=== PATIENT | female | born 1965 | race Asian ===

== ENCOUNTER 2017-11-26 05:55 | Day surgery (SDC) | payer OTHER, SELFPAY ==
[2017-11-24 14:13] VITALS: BMI 25.2
[2017-11-26] VITALS (7 sets, daily range): BP systolic 102–126; BP diastolic 65–79; PULSE 55–62; RESP 14–16; TEMP 36.2–36.9; O2SAT 98–100; BMI 25.2
[2017-11-26] MEDS: LACTATED RINGERS 1,000 ML 42 ML IV ×2 (06:50→10:25)
--- NOTE | 2017-11-26 07:46 | PM.PREOP ---
Pre-operative Note Interval Note Pre-op Check: Yes History & Physical Reviewed by Physician and Yes Exam Performed Changes: No
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
[2017-11-26] MEDS: CEFAZOLIN 2 GM/100 ML FROZ.PIGGY IV (08:04)
--- NOTE | 2017-11-26 08:41 | SUR.OPER ---
Supine on padded OR bed, head on pillow, arms secured on padded arm boards at <90 degrees abduction, left leg is in knee brace and under control of surgeon, right leg is taped over the blanket to the bed, safety belt at thigh.
[2017-11-26] MEDS: BUPIVACAINE 0.25% (PF) VIAL 30 ML INJ (08:59)
[2017-11-26] MEDS: SODIUM CHLORIDE IRRIG SOLUTION 3,000 ML, EPINEPHrine 1 MG IRR (09:00)
[2017-11-26] MEDS: BACITRACIN 50,000 UNIT VIAL 50000 UNIT IRR (09:29)
[2017-11-26] MEDS: OXYCODONE/ACETAMINOPHEN 5/325 TABLET 1 TAB PO (11:47)
== END 2017-11-26 12:55 | disposition home or self-care (01) ==
PROVIDERS: Visit Provider Orthopaedic Surgery
PROC: (CPT 29888; principal; 2017-11-26 07:45)
DX: S83.512A Sprain of anterior cruciate ligament of left knee, initial encounter (principal)
CPT/HCPCS: 29888; J0171; J0690; J2250; J2704; J3010

== ENCOUNTER → 2019-09-21 13:16 | Outpatient (CLI) | payer OTHER, SELFPAY ==
--- NOTE | 2019-09-21 | DI.MRI.S_ITS ---
PROCEDURE: MR HIP RT WO CON INDICATIONS: Pain in right hip TECHNIQUE: Noncontrast coronal T1 spin echo and STIR through the bony pelvis. Coronal and axial T2 fast spin echo with fat saturation, sagittal T1 spin echo, and oblique axial T2 fast spin echo with fat saturation through the hip. COMPARISON: None. FINDINGS: Image quality: Excellent. Bones and joints: Bone marrow of the pelvic ring and proximal femurs show normal signal throughout. No intraosseous lesions or fractures. No avascular necrosis of the femoral heads. The visualized lower lumbar spine appears normally aligned. Mild osseous hypertrophy noted at the femoral head neck junction compatible with mild osteoarthritis. Tendons and ligaments: The gluteus medius and minimus tendons appear intact, without associated muscle atrophy. Gluteus minimus tendon is mildly thickened with increased internal signal compatible with mild tendinosis. The nearby proximal iliotibial band also appears intact. The iliopsoas tendon appears intact, without adjacent bursal fluid collections or evidence for impingement syndrome. The origin of the hamstring tendon is intact at the ischial tuberosity, as well as the associated sacrotuberous ligament. The straight and reflected heads of the rectus femoris muscle origin appear intact, as well as the conjoint tendon. The ligamentum teres appears intact where visualized. Labrum and cartilage: The acetabular labrum appears intact in the absence of intra-articular contrast. Small, approximately 2 mm defect noted in the superior-lateral articular cartilage (series 6, image 7). The alpha angle of the femur is within normal limits at less than 55 degrees. Soft tissues: Visualized muscles demonstrate normal bulk and internal signal. Quadratus femoris muscle demonstrates no internal edema to suggest ischiofemoral impingement. The proximal sciatic neurovascular bundle appears normal adjacent to the hamstring tendons. No free pelvic fluid. Bladder wall thickness is normal. Genitourinary structures and bowel loops appear normal where visualized. IMPRESSION: 1. Mild right hip osteoarthritis. 2. 2 mm defect involving the superior-lateral femoral head articular cartilage. 3. Mild gluteus minimus tendinosis. 4. No labral tear. 5. No joint effusion. Dictated by: Fior Moreno MD, PhD on 09/21/2019 at 14:37 Approved by: Fior Moreno MD, PhD on 09/22/2019 at 11:41
== END ==
PROVIDERS: PCP General Practice; Referring Provider Family Medicine; Visit Provider Family Medicine
DX: M25.551 Pain in right hip (principal); M16.11 Unilateral primary osteoarthritis, right hip; M67.951 Unspecified disorder of synovium and tendon, right thigh
CPT/HCPCS: 73721

== ENCOUNTER → 2019-09-24 14:05 | Outpatient (CLI) | payer OTHER, SELFPAY ==
[2019-09-25 23:34] LABS: COVID19 Sendout Not Detected (Not Detect)
== END ==
PROVIDERS: PCP General Practice; Visit Provider Physician Assistant
DX: Z11.59 Encounter for screening for other viral diseases (principal)
CPT/HCPCS: 87635

== ENCOUNTER → 2019-10-13 15:30 | Outpatient (CLI) | payer OTHER, SELFPAY ==
--- NOTE | 2019-10-13 15:48 | DI.MG.S_ITS ---
Patient Name: FRANCISCO HUIZAR date: 1965 Sex: F Attending Physician: Jhony Indications: Date: 10/13/2019 15:39 At the request of: CARLOS MCDERMOTT Procedure: MM screening mammo BI BILATERAL DIGITAL SCREENING MAMMOGRAM 3D/2D WITH CAD: 10/13/2019 CLINICAL: Routine screening. Comparison is made to exams dated: 06/14/2018 mammogram - [facility], 10/09/2014 mammogram - [facility], and 08/03/2013 mammogram - [facility]. The tissue of both breasts is extremely dense, which lowers the sensitivity of mammography. Current study was also evaluated with a Computer Aided Detection (CAD) system. No significant masses, calcifications, or other findings are seen in either breast. There has been no significant interval change. IMPRESSION: NEGATIVE There is no mammographic evidence of malignancy. A 1 year screening mammogram is recommended. This exam was interpreted at Station ID: [id number]. NOTE: For mammograms, a report in lay terms will be sent to the patient. Approximately 15% of breast malignancies will not be visualized mammographically. In the management of a palpable breast mass, a negative mammogram must not discourage biopsy of a clinically suspicious lesion. Electronically Signed By: Donovan winters/janna:10/13/2019 17:40:54 letter sent: Normal Exam ACR BI-RADS Category 1: Negative [id number]
== END ==
PROVIDERS: PCP General Practice; Referring Provider General Practice; Visit Provider Family Medicine
DX: Z12.31 Encounter for screening mammogram for malignant neoplasm of breast (principal)
CPT/HCPCS: 77063; 77067

== ENCOUNTER → 2019-10-26 09:25 | Outpatient (CLI) | payer OTHER, SELFPAY ==
--- NOTE | 2019-10-26 | DI.MRI.S_ITS ---
PROCEDURE: MR ANGIO HEAD WO CON INDICATIONS: RIGHT POSTERIOR AN. TECHNIQUE: Noncontrast axial 3-D [id number] MR angiogram, with 3-dimensional maximum intensity projection (MIP) reformats of the internal carotid arteries and posterior circulation then performed. COMPARISON: [facility], MR, MR ANGIO HEAD WITHOUT CONTRAST, 10/29/2017, 19:35. [facility], MR, ANGIO HEAD WITHOUT CONTRAST, 09/11/2016, 13:06. FINDINGS: Image quality: Excellent. Anterior circulation: Intracranial internal carotid arteries demonstrate normal size and intraluminal flow signal. The flow within the paired anterior cerebral arteries is normal and symmetric. The flow within the middle cerebral arteries is normal and symmetric. The anterior communicating artery is seen. No stenoses, occlusions, or aneurysms. Posterior circulation: Visualized portions of the vertebral arteries demonstrate normal caliber, and join to form a normal appearing basilar artery. The flow within the posterior cerebral arteries is normal and symmetric. Persistent right posterior cerebral artery anatomy and left posterior cerebral artery origin congenital anatomic variants are redemonstrated. Slight prominence of the origin of the right posterior communicating artery is stable compared to prior examinations. No stenoses or occlusions. IMPRESSION: 1. Stable examination compared to October 29, 2017 and September 11, 2016. 2. Slight prominence of the origin of right posterior communicating artery is stable compared to prior examinations. Finding may represent a prominent infundibulum versus 1-2 millimeter aneurysm. Dictated by: Fior Moreno MD, PhD on 10/26/2019 at 11:25 Approved by: Fior Moreno MD, PhD on 10/26/2019 at 11:30
== END ==
PROVIDERS: PCP General Practice; Referring Provider Family Medicine; Visit Provider Family Medicine
DX: I67.1 Cerebral aneurysm, nonruptured (principal)
CPT/HCPCS: 70544

== ENCOUNTER → 2022-02-11 15:34 | Outpatient (CLI) | payer OTHER, SELFPAY ==
--- NOTE | 2022-02-11 16:34 | DI.MRI.S_ITS ---
PROCEDURE: MR ANGIO HEAD WO CON INDICATIONS: ANURYSM OF INSPECIFIEC SIYE TECHNIQUE: Noncontrast axial 3-D [id number] MR angiogram, with 3-dimensional maximum intensity projection (MIP) reformats of the internal carotid arteries and posterior circulation then performed. COMPARISON: [facility], MR, MR ANGIO HEAD WO CON, 10/26/2019, 10:14. [facility], MR, ANGIO HEAD WITHOUT CONTRAST, 09/11/2016, 13:06. [facility], MR, MR ANGIO HEAD WITHOUT CONTRAST, 10/29/2017, 19:35. FINDINGS: Image quality: Excellent. Anterior circulation: Intracranial internal carotid arteries demonstrate normal size and intraluminal flow signal. There is a diminutive left A1 segment, with a corresponding robust right A1 segment. 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 The flow within the paired anterior cerebral arteries is otherwise normal and symmetric. The flow within the middle cerebral arteries is normal and symmetric. The anterior communicating artery is seen. At the origin of the right posterior communicating artery, there is a mild outpouching seen, measuring approximately 2 mm, as on series 5, image 94. This is stable over time. Posterior circulation: Note is made of bilateral type origins of the posterior cerebral arteries, with an associated diminutive basilar artery. The flow within the posterior cerebral arteries is normal and symmetric. The distal vertebral arteries are overall small in size, yet otherwise unremarkable. No aneurysms are seen. Note is made of a cavum septum pellucidum. When discovered in isolation, this is considered to be a developmental variant of no clinical consequence. IMPRESSION: Stable outpouching seen at the origin of the right posterior communicating artery. An infundibulum is suspected, although differential diagnosis includes small aneurysm. [id number]-Hcazql developmental anomalies are incidentally noted. Dictated by: Giovani Bell M.D. on 02/11/2022 at 16:34 Approved by: Giovani Bell M.D. on 02/11/2022 at 16:38
== END ==
PROVIDERS: PCP General Practice; Referring Provider Physician Assistant Medical; Visit Provider Physician Assistant Medical
DX: I72.9 Aneurysm of unspecified site (principal)
CPT/HCPCS: 70544

== ENCOUNTER 2022-05-19 12:25 | Emergency (ER) | payer OTHER, SELFPAY ==
[2022-05-19] VITALS (7 sets, daily range): BP systolic 131–139; BP diastolic 63–75; PULSE 52–57; RESP 14; TEMP 36.8; O2SAT 98–100; BMI 24.7
--- NOTE | 2022-05-19 15:25 | PC.NURSE ---
Patient reports drinking a bubble billie last night and getting a boba stuck in her throat. Patient reported that they used their inhaler due to inability to breathe sufficiently. Patient states that they now can feel the boba stuck in their throat and its causing discomfort but denies having any pain.
--- NOTE | 2022-05-19 15:30 | ED.SKABFB ---
HPI - Skin/Abscess/Foreign Bdy General Chief complaint: Skin/Abscess/Foreign Body Stated complaint: Food Stuck in Windpipe Time Seen by Provider: 05/19/22 15:27 Source: patient Mode of arrival: Ambulatory Limitations: no limitations History of Present Illness HPI narrative: Patient is a 56-year-old female history of asthma presents today after aspirating a boba bubble from tea. She reports that they were drinking tea when she inhaled and bubble go down. She had some pain she used an inhaler. She is no wheezing or stridor no difficulty swallowing. She feels like her voice was a little bit [place] she has a little bit of chest pressure. No fever or chills. She overall does not appear in respiratory distress. Related Data Home Medications Medication Instructions Recorded Confirmed albuterol sulfate 90 mcg/actuation 1 - 2 puff inhalation Q4-6H PRN 11/24/17 11/24/17 aerosol inhaler Asthma fluticasone 100 mcg-salmeterol 50 1 puff inhalation BID 11/24/17 11/26/17 mcg/dose blistr powdr for inhalation (Advair Diskus) loratadine 10 mg tablet 10 mg PO DAILY 11/24/17 11/26/17 montelukast 10 mg tablet 10 mg PO DAILY 11/24/17 11/24/17 (Singulair) white petrolatum 42 % topical 1 applic topical DIRECTED eczema 11/24/17 11/24/17 ointment (Hydrophor) zolmitriptan 2.5 mg tablet 2.5 mg PO Q2-4H PRN migraines 11/24/17 11/24/17 Allergies Allergy/AdvReac Type Severity Reaction Status Date / Time No Known Drug Allergies Allergy Verified 05/19/22 12:41 Review of Systems Review of Systems ROS Unobtainable: All systems reviewed & are unremarkable except as noted in HPI and below Patient History Medical History Asthma Cerebral aneurysm Social History household members: spouse and children Smoking Status: Never smoker alcohol intake: current Smoking Status: Never smoker Substance Use Type: does not use Exam Initial Vital Signs Initial Vital Signs: Vital Signs Temperature 98.3 F 05/19/22 12:42 Pulse Rate 57 L 05/19/22 12:42 Respiratory Rate 14 05/19/22 12:42 Blood Pressure 139/63 05/19/22 12:42 Pulse Oximetry 99 05/19/22 12:42 Oxygen Delivery Method Room Air 05/19/22 12:42 GENERAL: Alert well-appearing 56 year old female and in no acute distress. HEENT: Head atraumatic,EOMI, pupils reactive, face symmetric, moist mucous membranes CARDIOVASCULAR: Regular rate and rhythm without murmurs, rubs or gallops. RESPIRATORY: Breath sounds equal bilaterally, no wheezes rales or rhonchi. ABDOMEN: Soft, nontender. Normoactive bowel sounds all 4 quadrants. No guarding or rebound.s EXTREMITIES: Normal range of motion, no clubbing or edema. Neurovascularly intact NEUROLOGICAL: Alert and oriented x4. SKIN: Warm, dry, no laceration, no petechiae, no rashes or lesions. Course Orders Ordered: ED Orders 05/19/22 15:39 Chest [XR chest 2V] Stat Vital Signs Vital signs: Vital Signs - 8 hr 05/19/22 12:42 05/19/22 15:11 05/19/22 15:16 Temperature 98.3 F Pulse Rate 57 L 54 L 54 L Respiratory Rate 14 Blood Pressure 139/63 135/65 Pulse Oximetry 99 99 99 Oxygen Delivery Method Room Air Room Air 05/19/22 15:19 05/19/22 15:19 05/19/22 15:30 Temperature Pulse Rate 54 L Respiratory Rate Blood Pressure 131/72 131/75 Pulse Oximetry 100 Oxygen Delivery Method 05/19/22 15:30 05/19/22 16:00 05/19/22 16:30 Temperature Pulse Rate 52 L 54 L 52 L Respiratory Rate Blood Pressure Pulse Oximetry 98 99 100 Oxygen Delivery Method Room Air MDM - Skin/Abscess/Foreign Bdy Imaging Data Chest x-ray: Radiologist's Impression: PROCEDURE:? XR CHEST 2V ? INDICATIONS:? aspiration ? TECHNIQUE:? 2 views of the chest were acquired.? ? COMPARISON:? None. ? FINDINGS:? ? Surgical changes and devices:? None.? ? Lungs and pleura:? Lungs are clear.? No pleural effusions or pneumothorax.? ? Mediastinum:? Mediastinal contours are normal.? Heart size is normal.? ? Bones and chest wall:? No suspicious bony abnormalities.? Soft tissues appear unremarkable.? ? IMPRESSION:? No acute pulmonary process. ? ? Dictated by: Beatriz Diaz M.D. on 05/19/2022 at 16:41 ? MDM Narrative Medical decision making narrative: Patient is a 56-year-old female who inhaled a boba bubble from the tea. She has absolutely no airway compromise. Her lungs are clear. This happened yesterday. Chest x-ray does not show any abnormality. We discussed possible development of aspiration however does not need to be pretreated at this time. I suspect that the organic material will break down there is no need to go with a bronchoscopy. At this time supportive care only Discharge Plan Departure Patient Disposition: Home Clinical Impression: Aspiration into airway Instructions: Aspiration Pneumonia Activity Restrictions/Additional Instructions: *You have been diagnosed with aspiration *What to do: At this time there is no evidence of pneumonia on your x-ray. No foreign body is seen. You may still be sore. Please continue to monitor for worsening symptoms *Continue to take medications as directed *Follow up with your primary care provider in 2-3 days or call [phone] *Return to ER if you should have increased difficulty breathing, inability to swallow, fever chills cough or any new, worsening or concerning symptoms Prescriptions: No Action zolmitriptan 2.5 mg Tablet 2.5 mg PO Q2-4H PRN (Reason: migraines) montelukast [Singulair] 10 mg Tablet 10 mg PO DAILY fluticasone propion-salmeterol [Advair Diskus] 100-50 mcg/dose Blister With Device 1 puff INHALATION BID albuterol sulfate 90 mcg/actuation Hfa Aerosol Inhaler 1 - 2 puff INHALATION Q4-6H PRN (Reason: Asthma) loratadine 10 mg Tablet 10 mg PO DAILY white petrolatum [Hydrophor] 42 % Ointment 1 applic TOPICAL DIRECTED Referrals: ProviderShar [Primary Care Provider] - Stand Alone Forms: Patient Portal/API
--- NOTE | 2022-05-19 15:39 | DI.RAD.S_ITS ---
PROCEDURE: XR CHEST 2V INDICATIONS: aspiration TECHNIQUE: 2 views of the chest were acquired. COMPARISON: None. FINDINGS: Surgical changes and devices: None. Lungs and pleura: Lungs are clear. No pleural effusions or pneumothorax. Mediastinum: Mediastinal contours are normal. Heart size is normal. Bones and chest wall: No suspicious bony abnormalities. Soft tissues appear unremarkable. IMPRESSION: No acute pulmonary process. Dictated by: Beatriz Diaz M.D. on 05/19/2022 at 16:41 Approved by: Beatriz Diaz M.D. on 05/19/2022 at 16:41
== END 2022-05-19 16:51 | disposition home or self-care (01) ==
PROVIDERS: Emergency Provider Emergency Medicine
DX: T17.908A Unspecified foreign body in respiratory tract, part unspecified causing other injury, initial encounter (principal)
CPT/HCPCS: 71046; 99283

== ENCOUNTER 2023-06-20 19:49 | Emergency (ER) | payer OTHER, SELFPAY ==
[2023-06-20 20:00] VITALS: BP 143/70; PULSE 52; RESP 14; TEMP 36.4; O2SAT 100; BMI 24.7
[2023-06-20 20:21] VITALS: BP 134/71; PULSE 49; RESP 18; O2SAT 100
--- NOTE | 2023-06-20 20:29 | PC.NURSE ---
states she just wears glsses to drive.
--- NOTE | 2023-06-20 20:51 | ED.GENADULT ---
HPI - General Adult General Chief complaint: Eye Problems Stated complaint: R eye drooping Time Seen by Provider: 06/20/23 20:23 Source: patient Mode of arrival: Ambulatory History of Present Illness HPI narrative: Patient is a 57-year-old female who is here for evaluation of what she states is some tingling around her right eye and feeling like her right eye is drooping. She has no vision changes. No headache. No dental pain. No ear pain. No sinus congestion. No skin rashes. No trauma. Does wear glasses when she drives. She stated that she 1st noticed the symptoms when she was driving home earlier today from [place]. She does state that she has been under quite a bit of stress recently has a good friend of hers just and she was crying this morning. She denies any numbness or tingling in her upper and lower extremities. No balance issues. No rashes. No problems speaking. No problems swallowing. Related Data Home Medications Medication Instructions Recorded Confirmed albuterol sulfate 90 mcg/actuation 1 - 2 puff inhalation Q4-6H PRN 11/24/17 11/24/17 aerosol inhaler Asthma fluticasone 100 mcg-salmeterol 50 1 puff inhalation BID 11/24/17 11/26/17 mcg/dose blistr powdr for inhalation (Advair Diskus) loratadine 10 mg tablet 10 mg PO DAILY 11/24/17 11/26/17 montelukast 10 mg tablet 10 mg PO DAILY 11/24/17 11/24/17 (Singulair) white petrolatum 42 % topical 1 applic topical DIRECTED eczema 11/24/17 11/24/17 ointment (Hydrophor) zolmitriptan 2.5 mg tablet 2.5 mg PO Q2-4H PRN migraines 11/24/17 11/24/17 Allergies Allergy/AdvReac Type Severity Reaction Status Date / Time No Known Drug Allergies Allergy Verified 05/19/22 12:41 Review of Systems Review of Systems Narrative: See HPI ROS Unobtainable: All systems reviewed & are unremarkable except as noted in HPI and below Patient History Medical History Cerebral aneurysm Asthma Social History household members: spouse and children Smoking Status: Never smoker alcohol intake: current Smoking Status: Never smoker alcohol intake frequency: holidays/special occasions only Substance Use Type: does not use Exam Initial Vital Signs Initial Vital Signs: Vital Signs Temperature 97.6 F 06/20/23 20:00 Pulse Rate 52 L 06/20/23 20:00 Respiratory Rate 14 06/20/23 20:00 Blood Pressure 143/70 H 06/20/23 20:00 Pulse Oximetry 100 06/20/23 20:00 Oxygen Delivery Method Room Air 06/20/23 20:00 Const General: cooperative, comfortable, well groomed and No ill appearing HENMT Ears: hearing grossly normal bilaterally and TM's normal bilaterally Nose: external nose normal Face and sinus: face asymmetric (Slight swelling under the right eye.), no ecchymosis, no erythema, no fluctuance, no lacerations and no sinus tenderness Mouth: oral mucosae normal, lip normal and tongue normal Teeth and gingiva: dentition normal Throat: posterior oropharynx normal Eyes Periorbital: periorbital findings abnormal right periorbital swelling (Inferior aspect of right eye); no tenderness, no erythema and no ecchymosis Eyelids: eyelids normal Pupils: PERRL EOM: EOM intact bilaterally Resp Effort & Inspection: normal respiratory effort Cardio Rate: regular rate Neuro General: patient alert, patient awake, patient oriented x3 and moves all extremities Cranial Nerves: CN's II-XI intact bilaterally Cognition: normal cognition Speech: speech normal Motor: muscle tone normal throughout Sensory Exam: no sensory deficits noted Course Vital Signs Vital signs: Vital Signs - 8 hr 06/20/23 20:00 06/20/23 20:21 06/20/23 21:51 Temperature 97.6 F Pulse Rate 52 L 49 L 52 L Respiratory Rate 14 18 18 Blood Pressure 143/70 H 134/71 133/72 Pulse Oximetry 100 100 99 Oxygen Delivery Method Room Air Room Air Room Air Medical Decision Making MDM Narrative Medical decision making narrative: There is some mild swelling along the right cheek bone and under the right eye. I do not appreciate any drooping of the right eye. She reports some tingling to the area under the right eye but otherwise her cranial nerves are unremarkable. She has no other focal neurologic deficits. She does have history of an aneurysm but they have been watching this for the past several years without any change. Her symptoms today are not consistent with a CVA. Considered Kahn's palsy however her symptoms are not completely consistent with this as well. She has no signs of an infection. She has no ocular changes. No other HEENT symptoms that would be concerning for your eye. She has no skin changes over the area that would be concerning for an infection or zoster. She denied any specific trauma. Low suspicion for TIA. I had a long discussion with the patient in the . We did discuss the lack of a definitive diagnosis. Discussed that potentially her symptoms are so early on that over the next 12-24 hours she will develop something that will point us in a particular direction such as a skin rash or potentially progressive symptoms that would be more consistent with a Kahn's palsy. I do feel that we can hold on any radiologic studies he was once again I have low suspicion for CVA based on her presentation. They will go home and treat the symptoms conservatively. She can use some ice over the area. They understand that if any of her symptoms worsen or she develops new symptoms that she should return to the emergency department for further evaluation. Discharge Plan Departure Patient Disposition: Home Clinical Impression: Facial paresthesia Instructions: DI for Numbness/Tingling Activity Restrictions/Additional Instructions: Continue to take all of your medications as directed. If over the next 12-24 to 48 hours you develop new symptoms to include a rash, redness, increasing pain, eye pain or tooth pain please return to the emergency department for further evaluation. Prescriptions: No Action zolmitriptan 2.5 mg Tablet 2.5 mg PO Q2-4H PRN (Reason: migraines) montelukast [Singulair] 10 mg Tablet 10 mg PO DAILY fluticasone propion-salmeterol [Advair Diskus] 100-50 mcg/dose Blister With Device 1 puff INHALATION BID albuterol sulfate 90 mcg/actuation Hfa Aerosol Inhaler 1 - 2 puff INHALATION Q4-6H PRN (Reason: Asthma) loratadine 10 mg Tablet 10 mg PO DAILY white petrolatum [Hydrophor] 42 % Ointment 1 applic TOPICAL DIRECTED Referrals: ProviderShar [Primary Care Provider] - Stand Alone Forms: Patient Portal/API
[2023-06-20 21:51] VITALS: BP 133/72; PULSE 52; RESP 18; O2SAT 99
== END 2023-06-20 21:55 | disposition home or self-care (01) ==
PROVIDERS: Emergency Provider Emergency Medicine
DX: R20.2 Paresthesia of skin (principal)
CPT/HCPCS: 99281; 99282

== ENCOUNTER 2024-09-14 10:16 | Day surgery (SDC) | payer OTHER, SELFPAY ==
--- NOTE | 2024-09-14 | PATH_ITS ---
[facility] Accession Number: [id number] No. of containers..01 Tissue . 01 Material submitted: . colon - CECAL POLYP . 01 Diagnosis: CECAL POLYP, BIOPSY: Benign lymphoid aggregate. Focal surface hyperplastic changes; nonspecific. No diagnostic tubular adenoma or sessile serrated adenoma identified. . NOTE: Dr. Nahun Neal has also reviewed the case and agrees. . Additional deeper sections were examined. [facility] 09/26/20241954 Local . 01 Electronically signed: . Cedric Otero MD, Dermatopathologist NPI- [id number] . 01 Gross description: . CECAL POLYP: Received in formalin are 4 fragment(s) of [place], soft tissue measuring 0.1 x 0.1 x 0.1 cm to 0.8 x 0.6 x 0.2 cm submitted entirely in 1 cassette(s) /ÁLVARO 09/20/2024 0036 Local . 01 Pathologist provided ICD-10: Z12.11 . 01 CPT . 909572 Specimen Comment: A courtesy copy of this report has been sent to [phone] Performed at: [address] [id number] MD Robe Smith MD Phone: [phone]
[2024-09-14 11:09] VITALS: BP 117/77; PULSE 66; RESP 16; TEMP 36.7; O2SAT 99
[2024-09-14] MEDS: LACTATED RINGERS 1,000 ML 100 ML IV (11:13)
--- NOTE | 2024-09-14 11:41 | PM.HP.IH.1 ---
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 She had a colonoscopy about 5 years ago with polyps removed. No family history of colon cancer. [facility] Medical History Cerebral aneurysm Asthma Social History household members: spouse and children Smoking Status: Never smoker alcohol intake: current Meds Home Medications and Allergies Home Medications ?Medication ?Instructions ?Recorded ?Confirmed ?Type albuterol sulfate 90 mcg/actuation 1 - 2 puff inhalation Q4-6H PRN 11/24/17 09/14/24 History aerosol inhaler Asthma fluticasone 100 mcg-salmeterol 50 1 puff inhalation BID 11/24/17 09/14/24 History mcg/dose blistr powdr for inhalation (Advair Diskus) loratadine 10 mg tablet 10 mg PO DAILY 11/24/17 09/14/24 History montelukast 10 mg tablet 10 mg PO DAILY 11/24/17 09/14/24 History (Singulair) Held on 09/14/24. Instructions: Change in level of care white petrolatum 42 % topical 1 applic topical DIRECTED eczema 11/24/17 09/14/24 History ointment (Hydrophor) zolmitriptan 2.5 mg tablet 2.5 mg PO Q2-4H PRN migraines 11/24/17 09/14/24 History sodium,potassium,mag sulfates 17.5 See Rx Instructions PO .COMPLEX 08/08/24 09/14/24 Rx gram-3.13 gram-1.6 gram oral soln #354 mL (Suprep Bowel Prep Kit) conjugated estrogens 0.3 mg tablet 0.3 mg PO DAILY 09/14/24 09/14/24 History (Premarin) dupilumab 300 mg/2 mL subcutaneous mg SUBCUT 09/14/24 History pen injector (Dupixent) metformin 500 mg tablet,extended 500 mg PO DAILY 09/14/24 09/14/24 History release 24 hr venlafaxine 75 mg capsule,extended 75 mg PO DAILY 09/14/24 09/14/24 History release 24 hr Allergies Allergy/AdvReac Type Severity Reaction Status Date / Time No Known Drug Allergies Allergy Verified 09/14/24 10:54 Exam Vital Signs (past 8 hours): - 09/14/24 11:09 Temperature 98.1 F Pulse Rate 66 Respiratory Rate 16 Blood Pressure 117/77 Pulse Oximetry 99 Oxygen Delivery Method Room Air Oxygen Delivery Method Room Air Const General: healthy appearing Objective Labs Labs: Laboratory Results - last 24 hr 09/14/24 11:07 POC Whole Bld Glucose 117 H Assessment & Plan Assessment and plan (1) History of colon polyps: Status: Acute Plan Colonoscopy Time-Based Coding :: [TOTAL MINUTES] spent with patient and on the chart (including review of chart, obtaining history, exam, reviewing outside data, placing orders, documenting exam and treatment plan, and counseling patient) on [DATE]. [facility] Document charge(s): No
--- NOTE | 2024-09-14 12:12 | PM.OP.COLON ---
Operative Date/Time/Diagnoses Date of procedure: 09/14/24 Time of procedure: 12:13 Pre-op diagnosis: History of polyps Post-op diagnosis: same Procedure & Clinicians Study performed: Colonoscopy Same procedure(s) as scheduled: Yes Surgeon: Mt Farah Anesthesia Type: MAC +/- Procedure Notes Procedure in detail: Surgeon: Mt Farah MD Anesthesia: Kandace Carrillo CRNA Procedure: The patient was brought to the endoscopy suite, placed in left lateral decubitus position. The patient was connected to monitoring devices. A time-out was performed. Sedation was administered. Once the patient was adequately sedated, a digital rectal exam was performed and was normal. The scope was then inserted and advanced to the cecum where the appendiceal orifice was identified and photographed. The scope was then slowly withdrawn over greater than 6 minutes. The mucosa was thoroughly inspected. There was a 5 mm polyp in the cecum removed with a cold snare. The scope was retroflexed in the rectum. No other abnormalities were found. The scope was straightened and removed. The patient was awakened and brought to recovery. Scope withdrawal time: 9 minutes Sedation time: 15 minutes EBL: 2 mL Findings: 5 mm cecal polyp Post-procedure Disposition: PACU
[2024-09-14 12:14] VITALS: BP 98/56; PULSE 56; RESP 13; TEMP 36.6; O2SAT 97
[2024-09-14 12:19] VITALS: BP 103/59; PULSE 57; RESP 19; O2SAT 98
[2024-09-14 12:32] VITALS: BP 107/55; PULSE 54; RESP 18; TEMP 36.2; O2SAT 99
== END 2024-09-14 12:51 | disposition home or self-care (01) ==
PROVIDERS: Referring Provider Surgery; Visit Provider Surgery
PROC: 0DJD8ZZ Inspection of Lower Intestinal Tract, Via Natural or Artificial Opening Endoscopic (ICD-10-PCS; CPT 45378; principal; 2024-09-14 11:30)
DX: Z12.11 Encounter for screening for malignant neoplasm of colon (principal); Z86.0100 Personal history of colon polyps, unspecified; K63.5 Polyp of colon
CPT/HCPCS: 45385; 82962; J2704